=== PATIENT | male | born 1995 | race Caucasian/White ===

== ENCOUNTER 2021-11-29 10:28 | Emergency (ER) | payer MEDICAID ==
[~2021-11-29] VITALS: Ht 167.6 cm; Wt 108.0 kg
[2021-11-29 10:36] VITALS: BP 142/86
--- NOTE | 2021-11-29 10:57 | NUR ---
MD ABBOTT AT BEDSIDE FOR EVALUATION
[2021-11-29] MEDS ORDERED: predniSONE 20 MG TAB PO ONE (11:00)
[2021-11-29] MEDS ORDERED: ALBUTEROL 0.083% 2.5 MG/3 ML NEBU INH ONE (11:00)
[2021-11-29] MEDS ORDERED: ALBUTEROL SULFATE/IPRATROPIU 3 ML SOL IH ONE (11:00)
[2021-11-29] MEDS ORDERED: PRED20TA5 PO (11:06)
[2021-11-29] MEDS ORDERED: IBUP-2213 PO (11:06)
--- NOTE | 2021-11-29 11:10 | NUR ---
26YO MALE PT C/O COUGH AND SOB X3DAYS. STATES SHARP 7/10 CHEST PAIN W/O RADIATION WHEN COUGHING. PRESENT MOIST COUGH PRESENT. RUDY CLEAR SOUNDS. DENIES USING INHALER , N/V/D, FEVER OR CHILLS. PT AAOX4, ON DRUM PLATER , RESPIRATIONS EVEN AND UNLABORED. HOB POSITIONED PER COMFORT HX: ASTHMA NKA
[2021-11-29 11:46] VITALS: BP 142/86
--- NOTE | 2021-11-29 11:46 | NUR ---
Patient discharged with v/s stable. Written and verbal after care instructions FOR COUGH given and explained. Patient alert, oriented and verbalized understanding of instructions. Ambulatory with steady gait. All questions addressed prior to discharge. ID band removed. Patient advised to follow up with PMD. Rx of IBUPROFEN AND DELTASONE given. Opportunity to ask questions provided and answered.
--- NOTE | 2021-11-29 11:47 | NUR ---
The patient's care was reviewed and supervised by Amalia Ayala RN.
== END 2021-11-29 11:46 | disposition home or self-care (01) ==
LOC: MED 10:28
DX: R05.9 Cough, unspecified (principal); R07.89 Other chest pain; F17.200 Nicotine dependence, unspecified, uncomplicated; J45.909 Unspecified asthma, uncomplicated; Z79.899 Other long term (current) drug therapy
CPT/HCPCS: 94640; 94760; 99283; J7512; J7613

== ENCOUNTER 2021-12-27 19:30 | Emergency (ER) | payer MEDICAID ==
[~2021-12-27] VITALS: Ht 182.9 cm; Wt 108.9 kg
[~2021-12-27 19:30] MED LIST: IBUP-2213 PO; PRED20TA5 PO
[2021-12-27 19:45] VITALS: BP 135/90
--- NOTE | 2021-12-27 19:48 | NUR ---
TO LOBBY A/W BED AMBULATORY
--- NOTE | 2021-12-27 20:12 | NUR ---
Patient being evaluated by physician at bedside.
[2021-12-27] MEDS ORDERED: ALBUTEROL 0.083% 2.5 MG/3 ML NEBU INH ONE (20:20)
[2021-12-27] MEDS ORDERED: ALBUTEROL SULFATE/IPRATROPIU 3 ML SOL IH ONE (20:20)
[2021-12-27] MEDS ORDERED: predniSONE 20 MG TAB PO ONE (20:20)
[2021-12-27] MEDS ORDERED: ALBU0.0912 INH (20:21)
[2021-12-27] MEDS ORDERED: IBUP-2213 PO (20:21)
[2021-12-27] MEDS ORDERED: PRED20TA5 PO (20:21)
[2021-12-27] MEDS ORDERED: KETOROLAC 60 MG/2 ML VIAL IM ONE (20:25)
--- NOTE | 2021-12-27 20:40 | NUR ---
RESPIRATORY AT BEDSIDE FOR TREATMENT. PT C/O BURNING CHEST PAIN AFTER MED NEB TX. DR. DORADO AWARE. NO FURTHER ORDERS GIVEN.
[2021-12-27 21:22] VITALS: BP 126/87
--- NOTE | 2021-12-27 21:22 | NUR ---
Patient discharged with v/s stable. Written and verbal after care instructions given and explained. Patient alert, oriented and verbalized understanding of instructions. Ambulatory with steady gait. All questions addressed prior to discharge. ID band removed. Patient advised to follow up with PMD. Rx of ALBUTEROL, IBUPROFEN, PREDNISONE given. Patient educated on indication of medication including possible reaction and side effects. Opportunity to ask questions provided and answered.
== END 2021-12-27 21:22 | disposition home or self-care (01) ==
LOC: MED 19:30
DX: J45.901 Unspecified asthma with (acute) exacerbation (principal)
CPT/HCPCS: 93005; 94760; 96372; 99283; J1885; J7512; J7613; 94640

== ENCOUNTER 2021-12-29 11:34 | Emergency (ER) | payer MEDICAID ==
[~2021-12-29] VITALS: Ht 182.9 cm; Wt 109.9 kg
[~2021-12-29 11:34] MED LIST changes: +ALBU0.0912 INH
[2021-12-29 13:18] VITALS: BP 140/80
[2021-12-29] MEDS ORDERED: IBUPROFEN 800 MG TAB ONE (13:20)
--- NOTE | 2021-12-29 13:23 | NUR ---
PT TO TALHA MINAYA
[2021-12-29] MEDS ORDERED: IBUPROFEN 800 MG TAB PO ONE (13:30)
[2021-12-29] MEDS ORDERED: PROM118S5 PO (13:56)
[2021-12-29] MEDS ORDERED: BENZ-300 PO (13:56)
--- NOTE | 2021-12-29 14:20 | NUR ---
C/O FLU LIKE S/S X 2 DAYS WAS SEEN AT [facility] ER FOR LAST LAST NIGHT HX-NONE NKA IBU 800MG PO GIVEN-NADR
--- NOTE | 2021-12-29 14:28 | NUR ---
COVID, FLU SWABS DONE
[2021-12-29 14:35] VITALS: BP 140/89
--- NOTE | 2021-12-29 14:35 | NUR ---
Patient discharged with v/s stable. Written and verbal after care instructions given and explained. Patient alert, oriented and verbalized understanding of instructions. Ambulatory with steady gait. All questions addressed prior to discharge. ID band removed. Patient advised to follow up with PMD. Rx of CEPACOL SORE THROAT LOZENGE & PROMETHAZINE given. Patient educated on indication of medication including possible reaction and side effects. Opportunity to ask questions provided and answered.
[2021-12-29] MEDS ORDERED: TAM75 PO (16:44)
== END 2021-12-29 14:35 | disposition home or self-care (01) ==
LOC: MED 11:34
DX: B34.9 Viral infection, unspecified (principal); Z20.822 Contact with and (suspected) exposure to COVID-19
CPT/HCPCS: 99283